=== PATIENT | female | born 1995 | race Caucasian/White ===

== ENCOUNTER → 2021-05-20 08:07 | Outpatient (CLI) | payer OTHER, SELFPAY ==
--- NOTE | ~2021-05-20 | US_ITS ---
EXAMINATION: US OB <= 14 weeks fetus DATE: 05/20/2021 08:52 INDICATION: Uncertain dates, presumed first trimester TECHNIQUE: Real-time pelvic transabdominal and transvaginal ultrasound was performed. COMPARISON: None. FINDINGS: The uterus measures 12.8 x 7.4 x 8.3 cm. There is an intrauterine gestational sac. A yolk sac is identified. heart motion is identified measuring 161 beats per minute (bpm) by M-mode Do ppler. The crown rump length measures 4.9 cm , which correlates with an estimated gestational a ge of 11 weeks and 5 day(s) (+/-) 7 day(s). The right ovary is not visualized however no right adnexal abnormality is seen. The left ovary measur es 2.6 x 1.9 x 1.8 cm. There is normal vascular flow in the left ovary. There is no free fluid in the pelvis. IMPRESSION: 1. Live intrauterine with an estimated gestational age of 11 weeks and 5 day(s) (+/-) 7 day (s) and an estimated delivery date of 12/04/2021. Reviewed, dictated and finalized at location B. ERATIVE MANAGER IMPRESSION: 1. Live intrauterine with an estimated gestational age of 11 weeks an d 5 day(s) (+/-) 7 day(s) and an estimated delivery date of 12/04/2021.
== END ==
PROVIDERS: Visit Provider Nurse Practitioner
DX: Z34.91 Encounter for supervision of normal pregnancy, unspecified, first trimester (principal); Z3A.11 11 weeks gestation of pregnancy
CPT/HCPCS: 76801

== ENCOUNTER → 2021-07-09 09:40 | Outpatient (CLI) | payer OTHER, SELFPAY ==
--- NOTE | ~2021-07-09 | US_ITS ---
EXAMINATION: US OB /maternal detail EXAM DATE: 07/09/2021 10:20 INDICATION: anatomy scan. 2nd trimester. TECHNIQUE: Pelvic obstetrical transabdominal sonogram was performed by a technologist. There are mu ltiple grayscale and Doppler images available for interpretation. Comparison is made to prior examina tion from 05/20/2021. FINDINGS: There is a single fetus identified in transverse presentation, head to maternal right side with a heart rate of 157 beats per minute. The placenta is located in the low posterior position, bernardo cental margin to internal cervical os distance is 1.3 cm.. There is no sonographic evidence of retro placental hemorrhage identified. There is subjectively expected amount of amniotic fluid. BIOMETRIC DATA: Biparietal diameter (BPD): 4.1 cm ----------------> 18 weeks 3 days. Head circumference (HC): 15.3 cm ----------------> 18 weeks 2 days. Abdominal circumference (AC): 12.6 cm ----------> 18 weeks 1 day. Femur length (FL): 2.7 cm --------------------------> 18 weeks 2 days. These measurements are concordant. HC/AC ratio is 1.21 (The 5th -- 95th percentile range is 1.0-1.27. Estimated weight is 231 g +/- 35 g. This is the 16th percentile when the currently reported cl inical gestation age 18 weeks 6 days, clinical estimated date of delivery (BHAKTI-OPE) 12/04 is used. Fet al estimated gestational age based on measurements from this exam is 18 weeks 2 days, with an estimat ed date of delivery (BHAKTI-AUA) 12/08. ANATOMIC SURVEY: The following anatomy is identified and is sonographically normal in appearance: Cerebral ventricles Cavum septum pellucidum Cerebellum Cisterna magna Nuchal fold CTL-spine Four-chamber heart Diaphragm Stomach Kidneys Bladder Three-vessel cord Cord insertion Extremities Nose/lips The cardiac outflow tracts are not well visualized due to young gestational age and positioning . IMPRESSION: 1. Single fetus in transverse presentation with heart rate 158 beats per minute. 2. Estimated weight of 231 grams, 16th percentile using the currently reported clinical gestat ion age of 18 weeks 6 days, BHAKTI(OPE) 12/04. 3. Posterior low placenta. 4. Imaged anatomy normal. Outflow tracts not evaluated. Reviewed, dictated and finalized at location A. KE WORKER IMPRESSION: 1. Single fetus in transverse presentation with heart rate 158 beats per minut e. 2. Estimated weight of 231 grams, 16th percentile using the currently re ported clinical gestation age of 18 weeks 6 days, BHAKTI(OPE) 12/04. 3. Posterior low placenta. 4. Imaged anatomy normal. Outflow tracts not evaluated.
== END ==
PROVIDERS: Visit Provider Obstetrics & Gynecology Gynecology
DX: Z36.89 Encounter for other specified antenatal screening (principal); Z3A.18 18 weeks gestation of pregnancy; O44.42 Low lying placenta NOS or without hemorrhage, second trimester
CPT/HCPCS: 76805

== ENCOUNTER 2021-08-02 17:03 | Emergency (ER) | payer OTHER, SELFPAY ==
--- NOTE | 2021-08-02 17:15 | ED.URI ---
HPI - URI/Sore Throat General Chief Complaint: Upper Respiratory Infection Stated Complaint: Congestion Time Seen by Provider: 08/02/21 17:16 Source: patient, family, RN notes reviewed and old records reviewed Mode of arrival: ambulatory Limitations: no limitations History of Present Illness HPI Narrative: 26-year-old female presents to the [facility] with complaints of nasal congestion for approximately 1 week. Had talked to her OB on and was told that if it does not improve over the weekend to go to the urgent care. Patient is , has no concerns for issues Has taken Sudafed and Tylenol. MD elicited complaint: nasal congestion Related Data Allergies Allergy/AdvReac Type Severity Reaction Status Date / Time No Known Allergies Allergy Verified 08/02/21 17:05 Review of Systems Review of Systems: All systems reviewed & are unremarkable except as noted in HPI and below Constitutional: Constitutional: Reports no additional constitutional complaints, Denies chills, Denies fever(s) and Denies headache(s) Eyes: Eyes: Reports no additional eye complaints ENT: Reports as per HPI, Denies vertigo, Denies dizziness, Denies headache(s), Reports nasal congestion and Denies sore throat Comments: Sinus pressure Cardiovascular: Cardiovascular: Reports no additional cardiovascular complaints, Denies chest pain, Denies syncope, Denies rapid heart rate and Denies dyspnea Respiratory: Respiratory: Reports no additional respiratory complaints, Denies cough, Denies dyspnea and Denies wheezing Gastrointestinal: Gastrointestinal: Reports no additional gastrointestinal complaints, Denies abdominal pain, Denies diarrhea, Denies nausea and Denies vomiting Musculoskeletal: Musculoskeletal: Reports no additional musculoskeletal complaints and Denies numbness Integumentary/Breasts: Skin/Breast: Reports system reviewed and no additional complaints, except as docu Neurologic: Reports system reviewed and no additional complaints, except as documented, Denies vertigo, Denies dizziness, Denies syncope, Denies headache(s), Denies focal weakness and Denies numbness Psychiatric: Psychiatric: Reports no additional psychiatric complaints Allergic/Immunologic: Allergic/Immunologic: Reports no additional allergic/immunologic complaints and Denies wheezing PMFSH Past Medical History Medical History (Updated 08/03/21 @ 10:24 by Christen Acevedo) No significant medical problems Surgical History Surgical History (Updated 08/03/21 @ 10:24 by Christen Acevedo) No significant past surgical history Social History Social History (Updated 08/03/21 @ 10:24 by Christen Acevedo) Living arrangements: with family Gender identity (if verbalized by the patient): Female Comments At the time of my signature, I reviewed and agree with the nursing past medical, surgical, social, and family history. There is no relevant family history pertinent to the patient complaint. Exam Const: General: cooperative, healthy appearing, no acute distress, well developed and alert Nutritional Appearance: well nourished Orientation/consciousness: patient oriented x3 Limitations: no limitations HENMT: Head: normal to inspection Ears: external ears normal, TM's normal bilaterally and EAC's normal General nose exam: Normal external nose present and Normal nasal mucous membranes and turbinates present Face and sinus: normal facial exam Mouth: Yes Normal oral and palatal mucosa present Throat: posterior oropharynx normal Eyes: Conjunctivae: conjunctivae normal Pupils: Equal, round and reactive pupils present Neck: Neck: normal visual inspection, no lymphadenopathy and no meningeal signs Chest: Chest palpation & inspection: normal inspection of the chest Resp: Effort & Inspection: normal respiratory effort and no use of accessory muscles Auscultation: clear to auscultation bilaterally, no crackles, no rales, no rhonchi and no wheezes Cardio: Rate: regula
[2021-08-02 17:16] VITALS: BP 120/77; PULSE 98; RESP 16; TEMP 36.9; O2SAT 99
== END 2021-08-02 17:35 | disposition home or self-care (01) ==
PROVIDERS: Emergency Provider Nurse Practitioner
DX: J32.9 Chronic sinusitis, unspecified (principal)
CPT/HCPCS: 99203; G0463

== ENCOUNTER → 2021-08-06 15:47 | Outpatient (CLI) | payer OTHER, SELFPAY ==
--- NOTE | ~2021-08-06 | US_ITS ---
US OB limited 08/06/2021 16:14 Indication: Low-lying placenta Procedure: High-resolution Limited obstetrical ultrasound Comparison: Ultrasound dated 07/09/2021 Findings: There is a single living intrauterine in breech presentation. Placenta is posteri or and low lying measuring 1.7 cm to the cervix. Amniotic fluid is subjectively normal. Limited surve y demonstrates a normal four-chamber heart and ventricular outflow tracts. Impression: 1: Single living intrauterine in breech presentation. 2: Low-lying posterior placenta measuring 1.7 cm to the cervix. 3: Normal limited survey of the four-chamber heart and ventricular outflow tracts. Reviewed, dictated and finalized at location B. CAL SUPERINTENDENT Impression: 1: Single living intrauterine in breech presentation. 2: Low-lying posterior placenta measuring 1.7 cm to the cervix. 3: Normal limited survey of the four-chamber heart and ventricular outflow trac ts.
== END ==
PROVIDERS: Visit Provider Obstetrics & Gynecology Gynecology
DX: O44.42 Low lying placenta NOS or without hemorrhage, second trimester (principal); Z3A.00 Weeks of gestation of pregnancy not specified
CPT/HCPCS: 76815

== ENCOUNTER → 2021-09-03 08:16 | Outpatient (CLI) | payer OTHER, SELFPAY ==
--- NOTE | ~2021-09-03 | US_ITS ---
US OB limited 09/03/2021 08:37 Indication: Low-lying placenta Procedure: High-resolution Limited obstetrical ultrasound Comparison: Ultrasound dated 08/06/2021 Findings: There is a single living intrauterine in vertex presentation. heart rate is 158 BPM. The placenta is posterior measuring 6.5 cm to the cervix. Amniotic fluid volume is subjecti vely normal. Impression: 1: Posterior placenta without previa. Reviewed, dictated and finalized at location B. IOVASCULAR RADIOLOGIC TECHNOLOGIST Impression: 1: Posterior placenta without previa.
== END ==
PROVIDERS: Visit Provider Obstetrics & Gynecology Gynecology
DX: O44.43 Low lying placenta NOS or without hemorrhage, third trimester (principal); Z3A.00 Weeks of gestation of pregnancy not specified
CPT/HCPCS: 76815

== ENCOUNTER 2021-09-14 07:45 | Outpatient (RCR) | payer OTHER, SELFPAY ==
[2021-09-14 09:59] LABS: Hematocrit 31.6 % (37.0-47.0); Hemoglobin 10.7 g/dL (12.0-15.0)
[2021-09-14 10:12] LABS: Glucose 1 Hour PP 50gm Dose 123 mg/dL
[2021-09-14 10:52] LABS: HIV 1/2 Ab P24 Ag Result Negative (Negative)
[2021-09-14 10:58] LABS: Vitamin D 25 Hydroxy 49.7 ng/mL
[2021-09-14] MEDS: RHO(D) IMMUNE GLOBULIN 300 MCG/2 ML SYRINGE IM (14:58)
== END 2021-12-13 23:59 | disposition home or self-care (01) ==
LOC: ANHLAB 07:45
PROVIDERS: Visit Provider Obstetrics & Gynecology Gynecology
DX: Z11.4 Encounter for screening for human immunodeficiency virus [HIV] (principal); Z29.13 Encounter for prophylactic Rho(D) immune globulin; O36.0190 Maternal care for anti-D [Rh] antibodies, unspecified trimester, not applicable or unspecified; Z3A.00 Weeks of gestation of pregnancy not specified
CPT/HCPCS: 36415; 82306; 82947; 85014; 85018; 85461; 86703; 90384; 96372; G0432; J2790

== ENCOUNTER 2021-11-13 14:58 | Inpatient (IN) | payer OTHER, SELFPAY ==
[2021-11-13] VITALS (18 sets, daily range): BP systolic 127–142; BP diastolic 72–102; PULSE 93–128; TEMP 36–37.2; BMI 30.2
--- NOTE | 2021-11-13 15:48 | P.HP_ITS ---
H&P: HPI History of Present Illness Date/Time: 11/13/21 15:48 Saleem is a 26yo @ 36.5wks who presented with SROM @ 0800, clear. No VB. No regular contractions. Good movement. She has had regular care with Dr. Shore, no major complications. Chief Complaint: leakage of fluid Review of Systems Review of Systems: All systems reviewed & are unremarkable except as noted in HPI and below (HPI) [facility] Past Medical History Medical History No significant medical problems Surgical History Surgical History No significant past surgical history Family History Family History Father Hypertension Arthritis Heart problem Social History Social History Substance use: never Gender identity (if verbalized by the patient): Female Spiritual care concerns: No Meds Home Medications and Allergies Home Medications Medication Instructions Recorded Confirmed Type ergocalciferol (vitamin D2) 1,250 mcg PO WEEKLY 11/13/21 11/13/21 History [Vitamin D2] ferrous sulfate 11/13/21 History prenat.vits,rbian,lly-gurs-lzkju 1 tablet PO DAILY 11/13/21 11/13/21 History [ #2] Allergies Allergy/AdvReac Type Severity Reaction Status Date / Time No Known Allergies Allergy Verified 08/02/21 17:05 Exam Const: General: cooperative, healthy appearing, comfortable and no acute distress Resp: Effort & Inspection: normal respiratory effort Cardio: Rate: regular rate : Other: FHT's: 140's/ mod mariya/ + accels/ no decels - cat 1 TOCO; irregular ctx's Cervix: 1-2cm/thick/-3 Membranes: SROM, clear 0800 on 11/13/21 Presentation: cephalic Skin: General skin exam: normal color Neuro: General: patient oriented x3 Extrem: General: normal to inspection Psych: Appearance: grossly normal Affect: normal affect Attitude: cooperative Assessment and Plan Assessment and plan (1) premature rupture of membranes (PPROM) with unknown onset of labor: Code(s): O42.919 - premature rupture of membranes, unspecified as to length of time between rupture and onset of labor, unspecified trimester Status: Acute Additional Plan - PPROM after 34wks and will proceed with augmentation with pitocin - Ampicillin for GBS ppx - Will give dose of betamethasone 12mg IM - Continuous monitoring; currently reassuring - Anesthesia consult PRN pain
--- NOTE | 2021-11-13 16:04 | WPDHPUPDATE1 ---
History and Physical Update Update Date/Time: 11/13/21 16:04 History and Physical has been reviewed, including an updated exam of the patient. There are NO changes in the patient's condition. Risks, benefits, and alternatives have been discussed and questions answered. Patient agrees to proceed with procedure.
[2021-11-13] MEDS: LACTATED RINGERS 1,000 ML 125 ML IV CONT (16:20)
[2021-11-13] MEDS: AMPICILLIN 2 GM/NS 100 ML 2 GM/100 ML BAG IVPB (16:21)
[2021-11-13] MEDS: OXYTOCIN 30 UNITS/NS 500 ML 30 UNITS/500 ML BAG 6 UNITS IV CONT (16:21)
[2021-11-13] MEDS: BETAMETHASONE SOD PHOS/ACETATE 30 MG/5 ML VIAL 12 MG IM (16:21)
--- NOTE | 2021-11-13 16:37 | LDADM ---
This patient, Saleem Chaudhary, was admitted to Labor/Delivery/Recovery 105 on 11/13/21 at 14:58. Plans for labor, pain management and were discussed with patient. Patient/family oriented to hospital policies and general routines including ID bracelet, bed and alarms, visiting hours, pain management, procedures, bathroom and other care routines, personal items, smoking policy, room service/diet and guest tray routines, security routines, and visiting hours. Patient/Family are encouraged to report perceived risks to care and to ask questions if they do not understand what they are told or what they should do. See OBIX for further documentation.
[2021-11-13 16:49] LABS: Basophils Percent Auto 0.2 % (0.2-1.2); Eosinophils Absolute Auto 0.1 K/mm3 (0-0.3); Eosinophils Percent Auto 0.5 % (0-4.4); Hematocrit 33.7 % (37.0-47.0); Hemoglobin 11.2 g/dL (12.0-15.0); Immature Granulocyte Absolute 0.07 K/mm3 (0.00-0.031); Immature Granulocyte Percent A 0.5 % (0-0.5); Lymphocytes Absolute Auto 2.54 K/mm3 (0.9-3.2); Lymphocytes Percent Auto 19.8 % (18.3-44.2); Mean Corpuscular HGB Conc 33.2 g/dl (32-36); Mean Corpuscular Hemoglobin 30.2 pg (26-34); Mean Corpuscular Volume 90.8 fl (80-100); Mean Platelet Volume 10.4 fl (7.4-10.4); Monocytes Absolute Auto 0.7 K/mm3 (0.1-0.6); Monocytes Percent Auto 5.3 % (2.6-8.5); Neutrophils Absolute Auto 9.5 K/mm3 (1.3-6.7); Neutrophils Percent Auto 73.7 % (45.5-73.1); Platelet Count Result 307 k/mm3 (150-375); Red Blood Count 3.71 M/mm3 (4.2-5.4); Red Cell Distribution Width 14.2 % (11.5-14.5); White Blood Count 12.9 K/mm3 (4.5-10.0)
--- NOTE | 2021-11-13 17:06 | WPDANESEPP ---
Anes - Eval Pre Procedure Date/Time: 11/13/21 17:06 Pre Op Diagnosis: Labor Patient Data Age: 26 Gender: F Height: 1.73 m Weight: 90 kg Allergies Allergy/AdvReac Type Severity Reaction Status Date / Time No Known Allergies Allergy Verified 08/02/21 17:05 Home Medications Medication Instructions Recorded Confirmed Type ergocalciferol (vitamin D2) 1,250 mcg PO WEEKLY 11/13/21 11/13/21 History [Vitamin D2] ferrous sulfate See Rx Instructions .ROUTE .COMPLEX 11/13/21 11/13/21 History prenat.vits,brian,mhr-xhjm-tphoj 1 tablet PO DAILY 11/13/21 11/13/21 History [ #2] Laboratory Tests 11/13/21 11/13/21 16:41 16:41 WBC 12.9 K/mm3 H K/mm3 (4.5-10.0) RBC 3.71 M/mm3 L M/mm3 (4.2-5.4) Hgb 11.2 g/dL L g/dL (12.0-15.0) Hct 33.7 % L % (37.0-47.0) MCV 90.8 fl fl (80-100) MCH 30.2 pg pg (26-34) MCHC 33.2 g/dl g/dl (32-36) RDW 14.2 % % (11.5-14.5) Plt Count 307 k/mm3 k/mm3 (150-375) MPV 10.4 fl fl (7.4-10.4) Immature Gran % (Auto) 0.5 % % (0-0.5) Neut % (Auto) 73.7 % H % (45.5-73.1) Lymph % (Auto) 19.8 % % (18.3-44.2) [place] % (Auto) 5.3 % % (2.6-8.5) Eos % (Auto) 0.5 % % (0-4.4) Baso % (Auto) 0.2 % % (0.2-1.2) Lymph # (Auto) 2.54 K/mm3 K/mm3 (0.9-3.2) [place] # (Auto) 0.7 K/mm3 H K/mm3 (0.1-0.6) Eos # (Auto) 0.1 K/mm3 K/mm3 (0-0.3) Baso # (Auto) 0.0 K/mm3 K/mm3 (0.0-0.1) Abs Immat Gran (auto) 0.07 K/mm3 H K/mm3 (0.00-0.031) Absolute Neuts (auto) 9.5 K/mm3 H K/mm3 (1.3-6.7) Absolute Nucleated RBC 0.0 K/mm3 K/mm3 (0.0-0.012) Nucleated RBC % 0.0 % % (0.0-0.2) RPR Pending Patient hx anesthesia problems: none Family hx anesthesia problems: none Results Review: All pre-operative results and documents have been reviewed as part of the pre-operative evaluation. [facility] Past Medical History Medical History No significant medical problems Surgical History Surgical History No significant past surgical history Family History Family History Father Hypertension Arthritis Heart problem Social History Social History Smoking status: Never smoker Substance use: never Gender identity (if verbalized by the patient): Female Spiritual care concerns: No Exam Day of Procedure 11/13/21 17:06 Patient weight: obese Heart: regular rate and rhythm Lungs: normal air movement Airway: Mallampati scale class II Neurological: alert and oriented
[2021-11-13] MEDS: AMPICILLIN 1 GM/NS 50 ML 1 GM/50 ML BAG IVPB (20:43)
--- NOTE | 2021-11-13 20:44 | PM.OBPNLAB ---
Pain Control Date/time seen: 11/13/21 20:44 Pain control: tolerating well Pelvic Exam Dilation (cm): 1 (.5) Effacement (%): 20 station: -4 Amniotic membrane status: Ruptured (PPROM, clear 0800 on 11/13/21) Contractions Monitor mode: External Contraction frequency: 2 Contraction pattern: Regular Status status: Category l Assessment and Plan Pitocin rate (mU/min): 18 Assessment: induction ongoing Plan: continuous present management
[2021-11-14] VITALS (333 sets, daily range): BP systolic 98–144; BP diastolic 39–114; PULSE 65–132; TEMP 36.3–37.2; O2SAT 79–100
[2021-11-14] MEDS: AMPICILLIN 1 GM/NS 50 ML 1 GM/50 ML BAG IVPB ×5 (00:39→16:31)
--- NOTE | 2021-11-14 03:29 | PM.OBPNLAB ---
Pain Control Date/time seen: 11/14/21 03:29 Pain control: epidural Pelvic Exam Dilation (cm): 3 (.5) Effacement (%): 60 station: -2 Amniotic membrane status: Ruptured (PPROM, clear 0800 on 11/13/21) Contractions Monitor mode: Internal Contraction frequency: 2 Contraction pattern: Regular Contraction intensity: Moderate Status status: Category l Assessment and Plan Pitocin rate (mU/min): 30 Assessment: induction ongoing Plan: continuous present management
--- NOTE | 2021-11-14 11:46 | PM.OBPNLAB ---
Pain Control Date/time seen: 11/14/21 11:46 Pain control: epidural Pelvic Exam Dilation (cm): 4 (.5) Effacement (%): 70 station: -2 Amniotic membrane status: Ruptured (PPROM, clear 0800 on 11/13/21) Contractions Monitor mode: Internal Contraction frequency: 2 Contraction pattern: Regular Contraction intensity: Moderate Status status: Category l Assessment and Plan Pitocin rate (mU/min): 24 Assessment: induction ongoing Plan: continuous present management Comments: - cervix more effaced and has had descent; no caput - continue pitocin per protocol; has periods of inadequate contractions - Afebrile; continue ampicillin - heart tones reassuring - will be due for second dose of betamethasone - making slow progress, no indication for at this point
[2021-11-14] MEDS: OXYTOCIN 30 UNITS/NS 500 ML 30 UNITS/500 ML BAG 32 UNITS IV CONT (14:32)
[2021-11-14] MEDS: BETAMETHASONE SOD PHOS/ACETATE 30 MG/5 ML VIAL 12 MG IM (16:30)
[2021-11-14] MEDS: CALCIUM CARBONATE (TUMS) 500 MG (200 MG ELEMENTAL) 1000 MG PO (19:42)
[2021-11-14] MEDS: OXYTOCIN 30 UNITS/NS 500 ML 30 UNITS/500 ML BAG 999 UNITS IV CONT (22:57)
--- NOTE | 2021-11-14 22:58 | PM.OBPRVD ---
OB - Delivery Note Procedure Delivery date: 11/14/21 Events: Premature Rupture of Membranes Intrapartal Events: Other (prolonged latent phase) Induction method: Per Pitocin Protocol Delivery monitor: External FHT and Internal Uterine Route of delivery: Laceration Description: Labial Delivery repair: vicryl Specimen: Yes (placenta) Quantitative Blood Loss (ml): 350 Anesthesia type: Epidural Disposition: Floor [place] Baby Date of : 11/14/21 Time of : 22:37 Weeks of gestation at delivery: 36 (.6) Infant gender: Female Weight (pounds): 6 Weight (ounces): 12 presentation: vertex position: Right Occiput Anterior Placenta delivery description: Expressed Cord Vessel Description: 3 Vessels and Delayed Cord Clamping score one minute: 8 score five minutes: 9 Narrative: Saleem presented to labor and delivery with pprom and was started on oxytocin. She had a very prolonged latent phase and was on Pitocin for 26 hours. She then progressed to active phase and rapidly progressed to complete dilation with strong desire to push. She pushed for approximately 10 minutes with good maternal effort. She delivered the head over intact perineum. She easily delivered the 's shoulders and body without complication. The was immediately placed skin to skin and had spontaneous cry. Delayed cord clamping was performed. The umbilical cord was then clamped and cut. With Pitocin running and gentle downward traction on the cord, the placenta delivered without complications. Bimanual massage was performed and slight atony was noted. Due to her prolonged induction and increased risk of bleeding, misoprostol 800 mcg was placed rectally. The patient was examined, and a left labial laceration was noted. The left labial laceration was repaired in the normal fashion using 3-0 Vicryl and good hemostasis was noted. Good uterine tone with minimal bleeding was noted at the end of the procedure. Sponge, lap, instrument, and needle counts were correct at the end the procedure. Mom and baby were left bonding in the birthing suite in stable condition. [facility] Delivery Billing Delivery Delivery: Delivery Charge
[2021-11-14] MEDS: OXYTOCIN 30 UNITS/NS 500 ML 30 UNITS/500 ML BAG 125 UNITS IV CONT (23:30)
[2021-11-15] VITALS (13 sets, daily range): BP systolic 117–143; BP diastolic 71–102; PULSE 94–119; RESP 16–18; TEMP 36.6–37.7; O2SAT 97–99
[2021-11-15] MEDS: IBUPROFEN 600 MG TABLET PO ×3 (01:17→22:58)
--- NOTE | 2021-11-15 01:32 | OBPPTRN ---
Patient transferred to post room #288 via W/C. Support person present. Oriented to unit, room, information board, rooming in, admission packet and security measures. Patient verbalizes understanding.
[2021-11-15 05:08] LABS: Hematocrit 31.2 % (37.0-47.0); Hemoglobin 10.7 g/dL (12.0-15.0)
--- NOTE | 2021-11-15 07:52 | P.PNOB_ITS ---
OB - PN: Subj Subjective Date/time seen: 11/15/21 07:52 Patient comments: pain well controlled and tolerating diet [place] baby status: doing well and other (Breastfed well x1, attempting every few hours. Encouraged pumping q 2-3 hours while awake and at least q 3 hours at night if not latching well. ) [place] feeding status: breast and bottle feeding OB - PN: Obj Data Labs CBC & Chem 7: 11/15/21 04:36 Labs: Laboratory Results - last 24 hr 11/15/21 11/15/21 04:36 04:36 Hgb 10.7 L Hct 31.2 L Blood Type O Negative Antibody Screen Negative OB - PN A/P Plan day: 1 Plan: routine care Comments: Anticipate discharge home 11/16/21 Time Spent With Patient Time: Total time spent is greater than 50% in coordination of care (as documented) at patient's floor/unit and/or counseling patient: Review of Systems Genitourinary: Comments: Vagina tender, minimal edema. Normal lochia Exam Narrative: Fundus @ U, firm and nontender. Const: General: comfortable, no acute distress and awake Limitations: no limitations
--- NOTE | 2021-11-15 07:58 | PM.DS ---
DS: Admitting Diagnosis Discharge Date Premature prelabor ROM Admitting Diagnosis Premature prelabor ROM DS: Discharge Diagnosis Discharge Diagnosis (1) premature rupture of membranes (PPROM) with unknown onset of labor: Code(s): O42.919 - premature rupture of membranes, unspecified as to length of time between rupture and onset of labor, unspecified trimester Status: Acute (2) (normal spontaneous vaginal delivery): Code(s): O80 - Encounter for full-term uncomplicated delivery Status: Acute (3) Rh negative status during : Code(s): O26.899 - Other specified related conditions, unspecified trimester; Z67.91 - Unspecified blood type, Rh negative Status: Acute Assessment and Plan: s/p Rhogam 11/15/21 DS: Summary Hospital Course Hospital Course: , PROM, Rh negative. DC home PP day 2 Time Spent with Patient Time attestation: Total time spent providing and/or coordinating discharge services: Exam Const: General: comfortable and no acute distress Limitations: no limitations GI: GI Palp: Yes Soft to palpation Skin: General skin exam: normal color Neuro: General: gait normal Extrem: General: normal to inspection Psych: Mental Status: mental status grossly normal DS: Data Data Completed and Pending Labs on day of discharge: Labs from last 24 hours 11/15/21 11/15/21 04:36 04:36 Hgb 10.7 L Hct 31.2 L Blood Type O Negative Antibody Screen Negative Screen Negative Baby's Blood Type O pos Baby's STEPHANIE Negative Doses of RhIg Required 1 Discharge Plan Discharge Attending physician on discharge: Karma Shore Discharging Clinician: Brooklynn Landrum Anticipated Discharge Date/Time: 11/16/21 15:00 Patient Disposition: Home, Self-Care Activity: may shower, as tolerated and pelvic rest Diet: as tolerated and regular Wound Care Instructions: follow printed instructions Discharge Instructions: Education: Mom and Baby Guide Given to: Mother Follow-Up: Call your delivering provider's office for an appointment to be seen in: 4 Weeks Mom and baby should come to the [facility] for the follow-up appointment. Appointment Date/Time: November 17, 2021 at 10:00 am What to expect at your follow-up visit: Blood Pressure Check Physical Assessment Call [phone] if you are unable to keep your appointment time. BREAST CARE: * Wear a snug supportive bra. * For engorgement discomfort: Breast Feeding: * Apply warm moist washcloths * Express milk as needed to relieve engorgement * Wear loose clothing Bottle Feeding: * May apply ice packs * For sore nipples: * Identify correct latch-on * Apply warm moist washcloths before and after nursing * Air dry nipples after nursing * May apply Lansinoh cream to nipples EPISIOTOMY/PERINEAL CARE: * Until bleeding stops, use your shai bottle after urinating * Change your pad frequently throughout the day * You may take sitz baths several times a day (fill your bathtub with warm water and soak for 20 minutes.) Do NOT bathe in the water * No tub baths until seen by your physician - You may shower ACTIVITY: * Rest as much as possible. * Do not exercise or lift anything heavier than your baby (such as laundry or other children.) * Avoid stairs or driving as much as possible. * Do not put anything into the vagina. No douching, tampons, or sexual activity until seen by physician. NOTIFY PHYSICIAN IF YOU HAVE ANY QUESTIONS OR IF ANY OF THE FOLLOWING SYMPTOMS OCCUR: * If your vaginal area becomes red, swollen, or more painful than what you have experienced in the hospital. * If your vaginal bleeding becomes foul smelling. * If your vaginal bleeding becomes more heavy than a period or if your bleeding changes from the color it is now to bright red. However,
[2021-11-15 08:20] LABS: Rapid Plasma Reagin Non-Reactive (NonReactive)
--- NOTE | 2021-11-15 08:55 | WPDANLDPN2 ---
Anes-Prog Note L&D Date/Time: 11/15/21 08:55 Comfortable throughout: labor and delivery Neuraxial method: epidural Epidural/Spinal procedure site: clean & non-tender Neuro status: Neuro function grossly intact. Cardiovascular status: normal Respiratory status: normal Airway patency: baseline Mental status: baseline Post-Op hydration status: normal Vital Signs: Last Vital Signs Temp 37.7 C H 11/15/21 08:05 Pulse 97 11/15/21 08:05 Resp 16 11/15/21 08:05 BP 128/86 11/15/21 08:05 Pulse Ox 97 11/15/21 08:05 Pain score (VAS): 0 I/O: Intake & Output 11/14/21 11/15/21 11/15/21 23:59 07:59 15:59 Intake Total 500 Output Total 79 Balance 500 -79 Post-procedural complaints: none Patient feedback: Patient satisfied with anesthetic care.
[2021-11-15] MEDS: RHO(D) IMMUNE GLOBULIN 300 MCG/2 ML SYRINGE IM (15:22)
--- NOTE | 2021-11-16 07:48 | PM.OBPNVD ---
OB - PN: Subj Subjective Date/time seen: 11/16/21 07:48 Patient comments: pain well controlled baby status: doing well, nursing well and other (breast pumping) [place] feeding status: pumping and bottle feeding OB - PN: Obj Data Labs CBC & Chem 7: 11/15/21 04:36 Labs: Laboratory Results - last 24 hr 11/13/21 11/15/21 16:41 04:36 RPR Non-reactive Blood Type O Negative Antibody Screen Negative Screen Negative Baby's Blood Type O pos Baby's STEPHANIE Negative Doses of RhIg Required 1 OB - PN A/P Assessment and Plan (1) premature rupture of membranes (PPROM) with unknown onset of labor: Code(s): O42.919 - premature rupture of membranes, unspecified as to length of time between rupture and onset of labor, unspecified trimester Status: Acute (2) (normal spontaneous vaginal delivery): Code(s): O80 - Encounter for full-term uncomplicated delivery Status: Acute (3) Rh negative status during : Code(s): O26.899 - Other specified related conditions, unspecified trimester; Z67.91 - Unspecified blood type, Rh negative Status: Acute Plan day: 2 Plan: discharge home Time Spent With Patient Time: Total time spent is greater than 50% in coordination of care (as documented) at patient's floor/unit and/or counseling patient: Exam Narrative: Fundus firm and 2 below U, lochia small, no clots. Const: General: cooperative, healthy appearing, comfortable and alert Orientation/consciousness: patient oriented x3
[2021-11-16 08:15] VITALS: BP 125/87; PULSE 75; RESP 16; TEMP 36.2; O2SAT 99
[2021-11-16 10:00] VITALS: PULSE 75; RESP 16; O2SAT 99
[2021-11-17 10:08] VITALS: BP 132/89; PULSE 88; RESP 16; TEMP 37; O2SAT 99
== END 2021-11-16 14:30 | disposition home or self-care (01) | DRG 805 ==
LOC: ANHLDR 15:38 → ANHOB2 11-15 01:39
PROVIDERS: Admitting Provider Obstetrics & Gynecology; Visit Provider Obstetrics & Gynecology Gynecology
DX: O42.913 Preterm premature rupture of membranes, unspecified as to length of time between rupture and onset of labor, third trimester (principal); O60.14X0 Preterm labor third trimester with preterm delivery third trimester, not applicable or unspecified; Z37.0 Single live birth; O36.0930 Maternal care for other rhesus isoimmunization, third trimester, not applicable or unspecified; Z3A.36 36 weeks gestation of pregnancy; O62.2 Other uterine inertia; O70.0 First degree perineal laceration during delivery
CPT/HCPCS: 36415; 84112; 85014; 85018; 85025; 85461; 86592; 86850; 86880; 86900; 86901; 86902; 88307; 90384; A9270; J0290; J0702; J2590; J2790; J2795; J7120

== ENCOUNTER 2021-12-20 10:21 | Outpatient (CLI) | payer OTHER, SELFPAY ==
--- NOTE | 2021-12-20 | ECG_ITS ---
Measurements Intervals [place] Rate: 48 P: 36 [place]: 161 QRS: 53 QRSD: 98 T: 28 QT: 461 QTc: 415 Interpretive Statements SINUS BRADYCARDIA OTHERWISE NORMAL ECG NO PREVIOUS ECG AVAILABLE FOR COMPARISON Electronically Signed On 12-20-2021 16:25:39 CDT by Landon Mendoza M.D.
== END 2021-12-20 10:22 | disposition home or self-care (01) ==
LOC: ANHCATHLAB 10:26
PROVIDERS: Visit Provider Advanced Practice Midwife
DX: I49.9 Cardiac arrhythmia, unspecified (principal)
CPT/HCPCS: 93005

== ENCOUNTER 2022-03-07 05:58 | Emergency (ER) | payer OTHER, SELFPAY ==
--- NOTE | ~2022-03-07 | XR_ITS ---
EXAMINATION: XR ankle LT min 3V, XR foot LT min 3V DATE: 03/07/2022 06:20 INDICATION: Dorsal and medial sided left foot pain post fall TECHNIQUE: 1. Anteroposterior, mortise, additional oblique and lateral view of the left ankle were obtained. 2. Dorsoplantar, two oblique and lateral views of the left foot were obtained. COMPARISON: None. FINDINGS: Alignment of the left foot and ankle is normal. No fracture or osteochondral lesion. Joint spaces are well maintained. Small plantar calcaneal spur. No ankle joint effusion. The soft tissues are unremar kable. IMPRESSION: 1. No acute osseous abnormality at the left foot or ankle. Reviewed, dictated and finalized at location A. IMPRESSION: 1. No acute osseous abnormality at the left foot or ankle.
[2022-03-07 06:06] VITALS: BP 129/69; PULSE 104; RESP 18; TEMP 36.5; O2SAT 99
--- NOTE | 2022-03-07 06:44 | ED.GENADULT ---
HPI - General Adult General Chief complaint: Extremity Injury, Lower Stated complaint: left foot injury, fell down 3 steps Time Seen by Provider: 03/07/22 06:40 History of Present Illness HPI narrative: Patient is a 26-year-old female who presents the emergency department with chief complaint of a left foot pain. Patient reports that she was walking up some steps fell twisting her foot. Patient reports pain in the area of the first metatarsal reports that it is bruised reports it hurts whenever she puts weight on it. The patient denies laceration denies head injury denies loss of consciousness. Related Data Home Medications Medication Instructions Recorded Confirmed ergocalciferol (vitamin D2) 1,250 1,250 mcg PO WEEKLY 11/13/21 11/13/21 mcg (50,000 unit) capsule (Vitamin D2) ferrous sulfate See Rx Instructions .Route .COMPLEX 11/13/21 11/13/21 prenat.vits,brian,slh-xmhh-qwerg 1 tablet PO DAILY 11/13/21 11/13/21 Allergies Allergy/AdvReac Type Severity Reaction Status Date / Time No Known Allergies Allergy Verified 08/02/21 17:05 Review of Systems Review of Systems: A 10 system review of systems was completed on the patient and is negative except for what is stated in the HPI. Nursing and ancillary documentation was reviewed. PMFSH Past Medical History Medical History No significant medical problems Surgical History Surgical History No significant past surgical history Family History Family History Father Hypertension Arthritis Heart problem Social History Social History Smoking status: Never smoker Substance use: never Gender identity (if verbalized by the patient): Female Spiritual care concerns: No Exam Narrative: GENERAL: Well-appearing, well-nourished, and in no acute distress. HEAD: Normocephalic, atraumatic. EYES: PERRLA and EOMI. ENT: Nares clear, no rhinorrhea or epistaxis. Mucous membranes moist. NECK: Supple. CHEST: Clear to auscultation. No respiratory distress. HEART: Regular rate and rhythm. No murmur heard. Normal peripheral pulses. ABDOMEN: Soft, nontender, nondistended, normal active bowel sounds. EXTREMITIES: Normal range of motion. No edema. There is bruising present at the first metatarsal. There is tenderness to palpation there is no deformity noted. SKIN: Warm, dry, no rash. NEURO: No focal deficits. Alert and oriented x3. PSYCH: Normal mood and affect. Course Course Emergency Course: Plain film x-ray showed no evidence of fracture. Patient will be placed in a postop shoe and will be started on anti-inflammatories and placed on crutches. Vital Signs Vital signs: Vital Signs Temperature 36.5 C 03/07/22 06:06 Pulse Rate 104 H 03/07/22 06:06 Respiratory Rate 18 03/07/22 06:06 Blood Pressure 129/69 03/07/22 06:06 Pulse Oximetry 99 03/07/22 06:06 Oxygen Delivery Room Air 03/07/22 06:06 Temperature 36.5 C 03/07/22 06:06 Pulse Rate 104 H 03/07/22 06:06 Respiratory Rate 18 03/07/22 06:06 Blood Pressure 129/69 03/07/22 06:06 Pulse Oximetry 99 03/07/22 06:06 Oxygen Delivery Room Air 03/07/22 06:06 Medical Decision Making Vital Signs Vital Signs: Vital Signs Temperature 36.5 C 03/07/22 06:06 Pulse Rate 104 H 03/07/22 06:06 Respiratory Rate 18 03/07/22 06:06 Blood Pressure 129/69 03/07/22 06:06 Pulse Oximetry 99 03/07/22 06:06 Oxygen Delivery Room Air 03/07/22 06:06 Temperature 36.5 C 03/07/22 06:06 Pulse Rate 104 H 03/07/22 06:06 Respiratory Rate 18 03/07/22 06:06 Blood Pressure 129/69 03/07/22 06:06 Pulse Oximetry 99 03/07/22 06:06 Oxygen Delivery Room Air 03/07/22 06:06 Discharge Plan Discharge Clinical Impre
== END 2022-03-07 07:50 | disposition home or self-care (01) ==
PROVIDERS: Emergency Provider Emergency Medicine
DX: S93.602A Unspecified sprain of left foot, initial encounter (principal); W10.9XXA Fall (on) (from) unspecified stairs and steps, initial encounter
CPT/HCPCS: 73610; 73630; 99283

== ENCOUNTER 2025-06-27 04:31 | Emergency (ER) | payer OTHER, SELFPAY ==
--- OUTSIDE RECORDS SUMMARY | 2025-06-27 04:33 | XMS_ITS ---
Author Organization Unknown ENCOUNTERS Encounter Performer Location Date Diagnosis Diagnosis Status Pre Admit [facility] [address] [place] [address] [id number] Emergency [facility] [address] [place] [address] [id number] [facility] [address] [place] [address] [id number] [facility] [address] [place] [address] [id number] [facility] Pre Admit [facility] [address] [place] [address] [id number] Outpatient [facility] [address] [place] [address] [id number] [facility] *Note: Encounters from your own facility or health system may be excluded. Allergies, Adverse Reactions, Alerts Allergen Type Severity Identification Date Medications Name Date Quantity Days Supplied GPI Number
--- OUTSIDE RECORDS SUMMARY | 2025-06-27 04:34 | XMS_ITS | Patient Health Record ---
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 Phone Concha Eldridge Unavailable [phone] Reason For Referral No Information Medications Medication SIG (Take, Route, Frequency, Duration) Notes Start Date End Date Status Vyvanse 30 MG Capsule Oral 04/27/2023 Active PARAGARD T 380-A 380 square mm INTRAUTERINE DEVICE INTRAUTERINE *Reorder from [employer] for eRx and Interaction Alerts* 04/27/2023 Active Immunizations Vaccine Route Administration Date Status Comme nts Tdap Unknown 12/16/2005 Administered Td (adult) preservative free Unknown 01/16/2003 Adminis tered Pfizer Biontech Covid-19 Vac cine 2nd dose Unknown 10/04/2020 Administered Pfizer Biontech Covid-19 Vac cine 2nd dose Unknown 10/25/2020 Administered Pfizer Biontech Covid-19 Vac cine 2nd dose Unknown 04/27/2021 Administered HPV9 (human papillomavirus), nonavalent Unknown 02/05/2007 Administered HPV9 (human papillomavirus), nonavalent Unknown 04/09/2007 Administered HPV9 (human papillomavirus), nonavalent Unknown 08/15/2007 Administered Hib, unspecified formulation Unknown 01/18/1994 Adminis tered Hib, unspecified formulation Unknown 09/26/1994 Adminis tered DTaP Unknown 1993 Administered DTaP Unknown 1993 Administered DTaP Unknown 01/18/1994 Administered DTaP Unknown 09/26/1994 Administered DTaP Unknown 04/03/1998 Administered Social History Social History Additional Details Category Social Info Options Details Migrated Social History Migrated Social History Alcohol Intake: Moderate 08/29/2022,Tobacco Years: Former smoker 08/14/2020,Smoking Status: 2 04/27/2023 Plan Of Treatment No Information
--- OUTSIDE RECORDS SUMMARY | 2025-06-27 04:34 | XMS_ITS | Continuity of Care Document ---
Author Organization [facility], Main Office Address [address] [place] [address] Assessment Encounter Date Assessment Date Assessment LastModified by Organization Details LastModified Time 04/16/2025 04/16/2025 Labs and Imaging Visit Summary A 29-year-old female with ADHD presented for medication management follow-up. She reported doing well on Vyvanse but has not refilled her prescription due to cost concerns. She previously took Adderall 10mg extended release with good effect but experienced excessive sweating and anxiety, which led to the switch to Vyvanse. She is currently taking L-theanine daily for stress management with good results. Sleep issues were discussed, particularly middle insomnia with awakening at 2 AM and difficulty returning to sleep due to phone use. She was advised to avoid phone use during nighttime awakenings and was recommended to try magnesium glycinate (not citrate) to help with sleep and mood. The plan includes attempting a prior authorization for Vyvanse through her insurance company, with documentation that she tried and failed Adderall due to side effects (anxiety and excessive sweating). If the prior authorization is denied, she agreed to try Adderall 10mg extended release again as an alternative. Her prescription will be sent to [facility] pharmacy. A follow-up appointment was scheduled for July 16, 2025. Standardized Scales: ASRS.v1.1=placed on chart [email or web address] Not available 04/16/2025 19:54:20 Plan of Treatment Reminders Order Date Submit Date Provider Last Modified By Organization Details Last Modified Time Details Appointments Psychiatr ic Med Managemen t 2025 05:00P M Rizwana Fried Not available Not available Not available Lab None recorded. Referral None recorded. Procedures None recorded. Surgeries None recorded. Imaging None recorded. Medication Orders None recorded. Patient TargetsNo targets recorded. Patient Instructions Encounter Date Encounter Id Patient Instructions Last Modified By Organization Details Last Modified Time 04/16/2025 [id number] Saleem reports taking L-theanine daily for stress management with good results. She was recommended this supplement by a previous therapist during when she was experiencing anxiety. Continue L-theanine as needed for stress management Monitor effectiveness and discuss at next appointment [email or web address] Not available 04/16/2025 19:41:54 Reason for Referral None Reported. Problems Name Problem SNOMED Code Status Onset Date Resolution Date Notes Provider Name and Address Organization Details Recorded Time Attention deficit hyperactivity disorder, predominantly inattentive type 11896679 Active 2023 Rizwana Fried CNM, [facility]- [address], [place], [address], [facility] 23:02:16 Disturbance in sleep behavior 89220229 Active 2024 Rizwana Fried CNM, [facility] [address], [place], [address], [facility] 19:42:04 Problem Notes None recorded. Procedures Surgical History Date Name Laterality Status Provider Name and Address Organization Details Recorded Time 3 Date of Last Pap Smear completed Karma Fernandes [facility] 01/14/2025 18:36:41 9 extraction of wisdom tooth completed Karma Fernandes [facility] 04/16/2025 18:57:15 Imaging Results None recorded. Procedure Notes None recorded. Medical Equipment None Reported. Allergies Allergen ID Allergen Name Allergen Category Reaction Reaction Severity Criticality Documentation Date Start Date Code Code System Note Provider Name and Address Organization Details Recorded Time 3042 Adderall medicatio n anxiety swelling Not available Not available Not available 04/16/2025 89659 RxNorm Karma Fernandes [facility] 19:11:56 Medications Name Sig Start Date Stop Date Status Note LastModified by Organization Details LastModified Time metronidazol e 0.75 % (37.5 mg/5 gram) vaginal gel 01/14 completed Not Available Not Available Not Available Adderall XR 10 mg capsule,exte nded release Take 1 capsule every day by oral route. 2024 active Not Available Not Available Not Avai lable lisdexamfeta mine 30 mg capsule TAKE 1 CAPSULE BY MOUTH ONCE DAILY IN THE MORNING 2024 active Not Available Not Available Not Avai lable Multi Vitamin active Not Available Not Available Not Available Vitals Date Recorded Body height Body mass index (BMI) Body weight Heart rate Systolic And Diastolic Provider Name and Address Organization Details Last Updated DateTime 04/16/2025 172.72 cm 24.9 kg/m2 59645.15 g 73 /min 123/85 mm[Hg] Karma Fernandes [facility] 17:56:57 Social History Question Answer Notes LastModified by [employer] Details LastModified Time Tobacco Smoking Status Former Smoker Rizwana Fried, CARYN, PMHNP- [address], [place], [address], [facility] 07/11/2023 09:10:40 What Is Your Level Of Caffeine Consumption? Occasional [email or web address] Information not available 07/11/2023 Are There Any Guns Present In Your Home? Yes [email or web address] Information not available 07/11/2023 Do You Feel Safe In Your Home? Yes [email or web address] Information not available 07/11/2023 Do You Have Any Future Plans To Get ? No, I Don't Want To Become [email or web address] Information not available 07/11/2023 Sex: Unknown Functional Status Question Answer Note LastModified by [employer] Details LastModified Time How many times per week do you consume alcohol? 3-4 times per week [email or web address] Information not available 07/11/2023 Do you use any illicit or recreational drugs? No [email or web address] Information not available 07/11/2023 Do you or have you ever used any other forms of tobacco or nicotine? No [email or web address] Information not available 07/11/2023 What is your level of alcohol consumption? Heavy Information not available 07/11/2023 What is your exercise level? None [email or web address] Information not available 07/11/2023 Mental Status Question Answer Note LastModified by Organization D etails LastModified Time Do you feel stressed (tense, restless, nervous, or anxious, or unable to sleep at night)? [id number] Information not available 07/11/2023 Family History Nothing Reported. Medical History Condition Response Anxiety Disorder Y ADD/ADHD Y Depression Y Neurologic/Epilepsy Y Gynecological History Statement/Question Response Abnormal Pap N Flow Moderate Date of LMP 04/13/2025 N N STIs/STDs N N HPV Vaccine Y Duration of Flow (days) 6 Current Control Method IUD 29 Frequency of Cycle (Q days) 28 Sexually Active? Y N/A Menses Monthly Y Date of Last Pap Smear 03/27/2023 Sexual Problems? N LMP Definite IUD N Obstetrics History GPAL:G 1 P 1 0 0 1 Type Value Full Term 1 Living 1 Total 1 Past Encounters Encounter ID Performer Location Encounter Start Date Encounter Closed Date Diagnosis/Indication Diagnosis SNOMED-CT Code Diagnosis ICD10 Code Diagnosis IMO Codes Diagnosis Note [id number] Rizwana Fried, ADAN, PMHNP- Main Office [address] [place] [address] 04/16/2025 17:47:28 04/17/2025 01:01:45 Attention deficit hyperactivity disorder, predominantly inattentive type 07479321 F90.0 [id number] I discussed medication options with Saleem today. She has been doing well on Vyvanse but has not refilled her prescripti on due to cost concerns ($75 monthly with insurance) . She previously took Adderall 10mg extended release with good effect but experience d excessive sweating and anxiety as side effects. We discussed attempting a prior authorizat ion for Vyvanse through her insurance company, documentin [email or web address] that she tried and failed Adderall due to side effects. Will submit prior authorizat ion for Vyvanse through [employer], documentin g previous trial and failure of Adderall due to side effects (anxiety and excessive sweating) If prior authorizat ion is denied, will prescribe Adderall 10mg extended release as an alternativ e Current prescripti on will be sent to [facility] Follow up in 3 months to assess medication efficacy and tolerabili ty Disturbanc e in sleep behavior [id number] G47.9 [id number] Saleem reports middle insomnia with awakening at 2 AM and staying awake for about an hour before returning to sleep. She acknowledg es using her phone during nighttime awakenings , which may be contributi ng to her difficulty returning to sleep. We discussed sleep hygiene practices. Recommende d avoiding phone use during nighttime awakenings due to its stimulatin g effectsSug gested trying magnesium glycinate (not magnesium citrate) to help with sleep and moodWill reassess sleep quality at next follow-up appointmen t Health Concerns Section Related Observation LastModified by Organization Detai ls LastModified Time None Recorded Concern Status LastModified by Organization Details LastModified Time None Recorded Payers Encounter Date Sequence Insurance Name Policy Number Policy Tim Covered Member ID Tim Member ID Guarantor Name 04/16/2025 1 [facility] ([facility]) [id number] Saleem Chaudhary [id number] Saleem Chaudhary Notes Date Note Type Note Provider Name and Address Organization Details Recorded Time 04/16/2025 text/html History of present illness Saleem Chaudhary is a 29-year-old female presenting for medication management follow-up. She reports that she has been doing well on Vyvanse but has not refilled her prescription due to cost concerns. She reports having taken Adderall in the past with good results before switching to Vyvanse. When asked about her experience with Adderall, she mentioned that she was on the lowest dose (10mg) and switched from it due to experiencing excessive sweating. She also noted that she had started experiencing anxiety around the time. which prompted her previous provider to suggest switching to Vyvanse, as it tends to work better for people with general anxiety. She states that the Vyvanse has been better for her overall. Saleem mentions that she is not currently experiencing anxiety issues like she did back in the day and is unsure if her previous anxiety was related to the medication or was situational. She reports that she has been taking L-theanine daily for stress management, which has been helpful. She explains that she was feeling overwhelmed by customers at work (not coworkers) and experiencing frustration, which prompted her to try this supplement. Her previous therapist had recommended L-theanine when she was and experiencing anxiety, as it was safe to take during . Regarding her sleep, she reports going to bed around 9 PM but waking up around 2 AM and staying awake for about an hour before falling back asleep. During this time, she admits to using her phone, which may be contributing to her difficulty returning to sleep. Past Medical History Illness, Injuries, Operations, and Treatment: Not provided Previous Psychiatric or Mental Health Treatment: History of anxiety, particularly during . Previously saw a therapist who recommended L-theanine for anxiety management. Previous Psychiatric or Mental Health Hospitalization: Not provided Medication History 1. Vyvanse: Dosage: Unknown Duration: Has been taking it for at least two years Effectiveness: Effective for ADHD symptoms Current status: Prescription available but not filled due to cost concerns 2. Adderall: Dosage: 10mg (extended release) Duration: Used during college years Effectiveness: Effective for ADHD symptoms Reason for Discontinuation: Experienced excessive sweating and anxiety 3. L-theanine: Dosage: Unknown Duration: Currently taking daily Effectiveness: Reports it helps with stress management Side effects: None reported Rizwana Fried, ADAN, PMHNP-BC [address], [place], [address], [facility] 04/16/2025 19:56:15 OBGyn Episode No OBEpisode recorded.
--- OUTSIDE RECORDS SUMMARY | 2025-06-27 04:34 | XMS_ITS | Clinical Summary ---
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
[2025-06-27 04:35] VITALS: BP 118/82; PULSE 99; RESP 16; TEMP 36.8; O2SAT 99
--- NOTE | 2025-06-27 05:00 | ED.EYEPROB ---
HPI - Eye Problem General Chief complaint: Eye Problems Stated complaint: right eye pain Time Seen by Provider: 06/27/25 04:38 History of Present Illness HPI Narrative: 30-year-old otherwise healthy female presenting to the emergency department with right eye irritation when she woke up on morning. She wears contact lenses and took them out before bed without any issues. When she woke up she had a right eye that was irritated and painful. Endorses sensitivity lytes and some tearing. No systemic symptoms. No fever, chills, nasal drainage or allergy symptoms. Has only tried some ibuprofen for symptoms. No topical eyedrops or any compresses. Tried calling alterations manager to see here and was told that she might be seen sometime today but she came to the emergency department as she was having pain. Endorses 8/10 pain in her right eye worse with light. Denies any traumatic injuries or scratches. Had no difficulties putting in or taking out her contacts. They were fresh pair contact lenses. No previous ocular issues or surgeries but she does state that a previous alterations manager mention that she has a scar in one of her eyes and thinks it could be the affected eye. No trauma or injury. Related Data Home Medications ?Medication ?Instructions ?Recorded ?Confirmed ?Last Taken ?Type ergocalciferol (vitamin D2) 1,250 1,250 mcg PO WEEKLY 11/13/21 11/13/21 11/09/21 08:00 History mcg (50,000 unit) capsule (Vitamin D2) ferrous sulfate See Rx Instructions .Route .COMPLEX 11/13/21 11/13/21 11/13/21 08:00 History prenat.vits,brian,[id number] 1 tablet PO DAILY 11/13/21 11/13/21 11/13/21 08:00 History Allergies Allergy/AdvReac Type Severity Reaction Status Date / Time No Known Allergies Allergy Verified 06/27/25 04:32 Review of Systems Review of Systems: As reviewed above in HPI All systems reviewed & are unremarkable except as noted in HPI and below PMFSH Past Medical History Medical History No significant medical problems Surgical History Surgical History No significant past surgical history Family History Family History Father Hypertension Arthritis Heart problem Social History Social History Smoking status: Never smoker Substance use: never Living arrangements: with family Gender identity (if verbalized by the patient): Female Spiritual care concerns: No Exam Narrative: GENERAL: [Well-appearing, well-nourished, and in no acute distress.] HEAD: [Normocephalic, atraumatic.] EYES: Pupils are equal reactive to light 3 mm. Extraocular movements are intact. No retained foreign body or contact lenses identified. Fluorescein dye used in combination with tetracaine for visual examination. Pain-free after tetracaine. There is a very small area of dye uptake in the left inner portion of her conjunctival tissue in the area overlying the medial I wrist that looks very circumferential and approximately .25 mm most likely the old scar that patient mention she has. Does not appear to be a corneal abrasion classically and does not appear to be an ulcer. No active drainage fluid or Cam sign. No signs of subconjunctival injury or globe injury. There is right eye irritation with conjunctival injection sparing the limbus. ENT: Nares clear, no rhinorrhea or epistaxis. Mucous membranes moist. NECK: Supple. CHEST: [No respiratory distress.] SKIN: Warm, dry, no rash. NEURO: [No focal deficits]. Alert and oriented [x3.] PSYCH: [Normal mood and affect.] Course Vital Signs Vital signs: Vital Signs Temperature 36.8 C 06/27/25 04:35 Pulse Rate 99 06/27/25 04:35 Respiratory Rate 16 06/27/25 04:35 Blood Pressure 118/82 06/27/25 04:35 Pulse Oximetry 99 06/27/25 04:35 Oxygen Delivery Room Air 06/27/25 04:35 Temperature 36.8 C 06/27/25 04:35 Pulse Rate 99 06/27/25 04:35 Respiratory Rate 16 06/27/25 04:35 Blood Pressure 118/82 06/27/25 04:35 Pulse Oximetry 99 06/27/25 04:35 Oxygen Delivery Room Air 06/27/25 04:35 MDM MDM Narrative Medical decision making narrative: 30-year-old otherwise healthy female presenting to the emergency department with right eye irritation when she woke up on morning. She wears contact lenses and took them out before bed without any issues. When she woke up she had a right eye that was irritated and painful. Endorses sensitivity lytes and some tearing. No systemic symptoms. No fever, chills, nasal drainage or allergy symptoms. Has only tried some ibuprofen for symptoms. No topical eyedrops or any compresses. Tried calling alterations manager to see here and was told that she might be seen sometime today but she came to the emergency department as she was having pain. Endorses 8/10 pain in her right eye worse with light. Denies any traumatic injuries or scratches. Had no difficulties putting in or taking out her contacts. They were fresh pair contact lenses. No previous ocular issues or surgeries but she does state that a previous alterations manager mention that she has a scar in one of her eyes and thinks it could be the affected eye. No trauma or injury. Pupils are equal reactive to light 3 mm. Extraocular movements are intact. No retained foreign body or contact lenses identified. Fluorescein dye used in combination with tetracaine for visual examination. Pain-free after tetracaine. There is a very small area of dye uptake in the left inner portion of her conjunctival tissue in the area overlying the medial I wrist that looks very circumferential and approximately .25 mm most likely the old scar that patient mention she has. Does not appear to be a corneal abrasion classically and does not appear to be an ulcer. No active drainage fluid or Cam sign. No signs of subconjunctival injury or globe injury. There is right eye irritation with conjunctival injection sparing the limbus. Exam consistent with conjunctivitis verses low suspicion corneal abrasion. She does wear contact lenses so she was given moxifloxacin eyedrops and prescription for them sent to her pharmacy. She stated she called [facility] and they were able to see her potentially today so I encouraged her to follow-up with ophthalmology today or tomorrow. Given return precautions and safe for discharge. Differential Diagnosis Differential Diagnosis: Exam consistent with conjunctivitis verses low suspicion corneal abrasion Discharge Plan Discharge Clinical Impression: Corneal abrasion, Conjunctivitis Patient Disposition: Home Condition: Stable Instructions: Antibiotic Form, Corneal Abrasion (DC), Conjunctivitis (ED) Additional Instructions: You appear to have a very small circumferential area of dye uptake in your left lower portion of the cornea overlying the iris which could be the old scar that you mentioned to me verses a small corneal abrasion. Your symptoms are consistent with either corneal abrasion or conjunctivitis which is inflammation/infectious process. Refrain from contact lens use in this eye until fully healed. We have given you topical eyedrops prescribed with instructions on how to use them. You can also take ibuprofen and Tylenol every 6-8 hours for fever and pain control. Warm compresses to the right eyelid can also help with pain and redness. Follow-up with the alterations manager today/tomorrow and return with any emergent concerns. Patient Language: Upper Sorbian Prescriptions: New moxifloxacin 0.5 % drops See Rx Instructions .ROUTE .COMPLEX 7 Days Qty: 3 0RF Rx Instructions: 1 drp into right eye ;Moxifloxacin 0.5% solution 2 drops every 2 hours for 2 days THEN q6hrs for 5 days No Action ergocalciferol (vitamin D2) [Vitamin D2] 1,250 mcg (50,000 unit) Capsule 1,250 mcg PO WEEKLY prenat.vits,brian,[id number] Tablet 1 tablet PO DAILY ferrous sulfate capsule See Rx Instructions .ROUTE .COMPLEX Rx Instructions: take as prescribed ibuprofen 600 mg Tablet 600 mg PO Q6H PRN (Reason: Cramping) 14 Days Qty: 30 0RF ibuprofen 800 mg tablet 800 mg PO TID PRN (Reason: pain) Qty: 30 0RF Follow-up/Referrals: [facility] [Outside] - 1 Day PHYSICIAN,BIOMEDICAL FIELD SERVICE ENGINEER [Primary Care Provider, Internal Medicine] Time of Disposition: 04:59
[2025-06-27] MEDS: MOXIFLOXACIN HCL 0.5% 3 ML OPHTH SOLN 1 DROP RIGHT EYE (05:15)
== END 2025-06-27 05:24 | disposition home or self-care (01) ==
PROVIDERS: Emergency Provider Student in an Organized Health Care Education/Training Program
DX: S05.01XA Injury of conjunctiva and corneal abrasion without foreign body, right eye, initial encounter (principal); H10.9 Unspecified conjunctivitis; X58.XXXA Exposure to other specified factors, initial encounter
CPT/HCPCS: 99283; A9270